=== PATIENT | female | born 1955 | race Caucasian/White ===

== ENCOUNTER → 2017-11-08 | Outpatient (CLI) | payer OTHER ==
[~2017-11-08] MED LIST: ALBU8.5H IH; ALBU8.5H12 IH; AMOX-559 PO; AMOX500T10 PO; AUG875 PO; AZIT-1 PO; AZIT500T47 PO; CEP500 PO; CHOL200025 PO; CIPR-214 PO; DOC100 PO; DUONEB INH; ESC10 PO; ESCI20TA38 PO; FAM20 PO; FAMO20TA9 PO; FLAX100053 PO; FLUT1DIS27 IH; GLUC100026 PO; GUAI120L3 PO; HYDR473S4 PO; IBU200 PO; IBU600 PO; LEVO-85 PO; LEVO50; LEVO750T44 PO; LEVO75TA73 PO; LIDO10VI16 INTRA-ART; LOR5 PO; LOR5/325 PO; MULT-865 PO; NAPR-1043 PO; OMEG-36 PO; OXYGENHOME INH; PHENA200 PO; PRE20 PO; PRED-1 PO; PRED20TA6 PO; RANI75TA5 PO; RED1000P MC; TRI40I IART; VITA-175 PO; ZOLP-350 PO
--- NOTE | 2017-11-08 15:52 | RADIOLOGY IMAGING REPORT ---
[place] [facility] [place]: SHAHRAM MELTON : [id number] MR: [id number] V: [id number] EXAM DATE: ORDERING PHYSICIAN: JOVANNA HO TECHNOLOGIST: Ricarda Marroquin PROCEDURE:BILATERAL DIGITAL SCREENING MAMMOGRAM WITH CAD ASSISTED INTERPRETATION & 3D TOMOSYNTHESIS COMPARISON:Prior mammograms 07/18/16, 06/18/15, 02/25/14, 01/04/12, 12/05/10 INDICATIONS:SCREENING FINDINGS: Small amount of fibroglandular tissue is seen throughout the breasts. The parenchymal pattern has remained stable allowing for difference in mammographic technique & patient positioning. There is no evidence of malignant appearing mass, malignant appearing calcifications or other secondary sign of malignancy in either breast. DIAGNOSTIC CATEGORY 1--NEGATIVE. RECOMMENDATIONS: ROUTINE MAMMOGRAM AND CLINICAL EVALUATION. IMPRESSION: BIRADS 1: Negative No significant abnormality is seen Dictated by: Dianelys Barros M.D. on 11/08/2017 at 10:06 Transcribed by: TALIB on 11/08/2017 at 10:12 Approved by: Dianelys Barros M.D. on 11/08/2017 at 15:51 [facility]
== END ==
LOC: MAMO 01:16
PROVIDERS: ATTEND Internal Medicine
DX: Z12.31 Encounter for screening mammogram for malignant neoplasm of breast (principal)
CPT/HCPCS: 77063; 77067

== ENCOUNTER → 2019-03-20 | Outpatient (CLI) | payer MEDICARE, OTHER ==
[~2019-03-20] MED LIST changes: -RANI75TA5 PO; +RANI75TA51 PO; +SIMV-49 PO; +TRAZ50TA52 PO
--- NOTE | 2019-03-20 10:07 | RADIOLOGY IMAGING REPORT ---
FACILITY: [facility] [place] PATIENT NAME: Lissette Ceballos : 1955 MR: [id number] V: [id number] EXAM DATE: ORDERING PHYSICIAN: ALYSSIA CORCORAN TECHNOLOGIST: Location: [facility] Patient: Lissette Ceballos : 1955 Visit/Account:[id number] Date of Sevice: 03/20/2019 BONE DENSITY DEXA Scan Clinical history: Osteopenia. Comparison: None available. LUMBAR SPINE: The bone mineral density (BMD) measured from L1-L4 correlates with a Z-score -0.8 and a T-score of -1 .9 which is osteopenia as defined by the World Health Organization. The corresponding risk of fractu re in the lumbar spine is increased nearly 4 times compared with a young adult reference population. HIP: Bone mineral density (BMD) measured in the Left total hip region correlates with a Z-score 0.4 and a T-score of -0.5 which is low normal as defined by the World Health Organization. The corresponding r isk of fracture in the hip is slightly increased between 1-2 times compared with a young adult refere nce population. Bone mineral density (BMD) measured in the Femoral Neck region measures 0.880 g/cm2. . T score -1.1. Osteopenia. Fracture is increased over 2 times Impression: 1. Lumbar spine: Osteopenia. 2. Left Total Hip: Low normal. 3. Femoral Neck: Bone Mineral Density is 0.880 g/cm2 . Osteopenia The next DEXA scan of this patient should include the following sites: L1-L4 and the left hip. FRAX? WHO Fracture Risk Assessment Tool link: <http://www.shef.ac.uk/FRAX/tool.jsp?locationValue=9> PLEASE NOTE: 1) The World Health Organization defines low BMD as follows: T-score Normal > -1 Osteopenia < -1 and > -2.5 Osteoporosis < -2.5 without fractures Established osteoporosis < -2.5 with fractures 2) In general, you may wish to consider: Diagnosis Treatment Follow-up DEXA Normal BMD Prevention 2-3 years Osteopenia Prevention/therapy 1-2 years Osteoporosis Therapy Yearly 3) Fracture risk estimated from the T-score is more accurate for vertebral fractures (often spontane ous) than for hip fractures. Report Dictated By: Jose Luis Park MD at 03/20/2019 9:58 AM Report E-Signed By: Jose Luis Park MD at 03/20/2019 10:00 AM SUKHDEVN:KIN
== END ==
LOC: RAD 08:59
PROVIDERS: ATTEND Emergency Medicine
DX: M85.88 Other specified disorders of bone density and structure, other site (principal)
CPT/HCPCS: 77080

== ENCOUNTER → 2019-03-28 | Outpatient (CLI) | payer MEDICARE, OTHER ==
[~2019-03-28] MED LIST changes: +CYAN100071 SL
--- NOTE | 2019-04-01 10:46 | RADIOLOGY IMAGING REPORT ---
FACILITY: [facility] - [place] PATIENT NAME: SHARHAM MELTON : [id number] MR: [id number] V: [id number] EXAM DATE: [id number] ORDERING PHYSICIAN: ALYSSIA CORCORAN TECHNOLOGIST: Ricarda Marroquin PROCEDURE: BILATERAL DIGITAL SCREENING MAMMOGRAM WITH CAD ASSISTED INTERPRETATION & 3D TOMOSYNTHESIS REASON FOR STUDY: Screening. COMPARISON: 11/08/17, priors to 02/25/14. VIEWS OBTAINED: 2D & 3D full field CC & MLO projections. BREAST DENSITY: Is almost completely fatty replaced. MAMMOGRAM FINDINGS: There are no mammographic findings concerning for malignancy. No significant interval change. IMPRESSION: BIRADS 1: Negative. DIAGNOSTIC CATEGORY 1--NEGATIVE. RECOMMENDATIONS: ROUTINE MAMMOGRAM AND CLINICAL EVALUATION IN 1YR. Dictated by: Manuel Worrell on 04/01/2019 at 8:50 Transcribed by: TALIB on 04/01/2019 at 9:53 Approved by: Manuel Worrell on 04/01/2019 at 10:41 [facility]
== END ==
LOC: MAMO 01:44
PROVIDERS: ATTEND Emergency Medicine
DX: Z12.31 Encounter for screening mammogram for malignant neoplasm of breast (principal); Z80.3 Family history of malignant neoplasm of breast
CPT/HCPCS: 77063; 77067